=== PATIENT | female | born 2000 | race Caucasian/White ===

== ENCOUNTER 2018-09-26 16:33 | Emergency (ER) | payer OTHER ==
[2018-09-26 17:03] VITALS: BP 124/79
--- NOTE | 2018-09-26 18:40 | UC ---
UC General HPI - HPI Summary HPI Summary: pt c/o sore throat and cough since yesterday. exposed to strep throat. - History of Current Complaint Chief Complaint: UCGeneralIllness Stated Complaint: SORE THROAT Time Seen by Provider: 09/26/18 18:36 Hx Obtained From: Patient Hx Last Menstrual Period: 08/27/18 Onset/Duration: Gradual Onset Timing: Constant Pain Intensity: 3 Associated Signs & Symptoms: Negative: Fever, SOB - Allergy/Home Medications Allergies/Adverse Reactions: Allergies Allergy/AdvReac Type Severity Reaction Status Date / Time amoxicillin Allergy Hives Verified 09/26/18 17:01 Penicillins Allergy Hives Verified 09/26/18 17:01 Home Medications: Home Medications Norgestimate-Ethinyl Estradiol [Sprintec 28 0.25-35 mg-Mcg] 1 tab PO DAILY 09/26 [History Confirmed 09/26/18] PMH/Surg Hx/FS Hx/Imm Hx Previously Healthy: Yes - Surgical History Surgical History: None - Family History Known Family History: Positive: Non-Contributory - Social History Occupation: Student Lives: Dormitory/Roommates Alcohol Use: Occasionally Substance Use Type: None Smoking Status (MU): Never Smoked Tobacco - Immunization History Vaccination Up to Date: Yes Review of Systems All Other Systems Reviewed And Are Negative: Yes Constitutional: Positive: Negative Skin: Positive: Negative Eyes: Positive: Negative ENT: Positive: Sore Throat Respiratory: Positive: Cough Cardiovascular: Positive: Negative Gastrointestinal: Positive: Negative Genitourinary: Positive: Negative Motor: Positive: Negative Neurovascular: Positive: Negative Musculoskeletal: Positive: Negative Neurological: Positive: Negative Psychological: Positive: Negative Physical Exam Triage Information Reviewed: Yes Appearance: Well-Appearing Vital Signs: Initial Vital Signs Temp 98.3 F 09/26/18 17:00 Pulse 88 09/26/18 17:00 Resp 16 09/26/18 17:00 BP 124/79 09/26/18 17:00 Pulse Ox 99 09/26/18 17:00 Vital Signs Reviewed: Yes Eyes: Positive: Conjunctiva Clear ENT: Positive: Pharyngeal erythema, TMs normal, Uvula midline. Negative: Nasal congestion, Nasal drainage, Trismus, Muffled voice, Hoarse voice Neck: Positive: Supple, Nontender, Enlarged Nodes @ - peritonsilar Respiratory: Positive: Lungs clear, Normal breath sounds Cardiovascular: Positive: RRR, No Murmur Abdomen Description: Positive: Nontender, No Organomegaly, Soft Bowel Sounds: Positive: Present Musculoskeletal: Positive: ROM Intact Neurological: Positive: Alert Psychological: Positive: Age Appropriate Behavior Skin Exam: Normal Diagnostics - Laboratory Diagnostic Studies Completed/Ordered: rapid strep + Course/Dx - Diagnoses Provider Diagnosis: Strep pharyngitis Discharge - Sign-Out/Discharge Documenting (check all that apply): Patient Departure All imaging exams completed and their final reports reviewed: No Studies - Discharge Plan Condition: Stable Disposition: HOME Prescriptions: Azithromycin 500 mg PO DAILY 5 Days #5 tablet Patient Education Materials: Strep Throat (DC) Referrals: VERONIKA LO [, APPLICATION, OTHER] - 7 Days - Billing Disposition and Condition Condition: STABLE Disposition: Home
== END 2018-09-26 18:45 | disposition home or self-care (01) ==
LOC: UCCORT 16:33
DX: J02.0 Streptococcal pharyngitis (principal); Z88.0 Allergy status to penicillin
CPT/HCPCS: 87651; 99202; G0463

== ENCOUNTER 2018-10-01 16:55 | Emergency (ER) | payer OTHER ==
[2018-10-01 17:55] VITALS: BP 123/86
--- NOTE | 2018-10-01 18:40 | ED ---
Laceration/Wound HPI - HPI Summary HPI Summary: 18 yr old female with the complaint of laceration distal phalynx left index finger. The patient was in the training room at the gym and she slipped with a pair of slippers when cutting something and ended up stabbing her finger. The patient was attended to by people at school. She states she washed her finger for 5 seconds under running water, and then her friend applied betadine and cleaned the wound with gauze and betadine. They then put on some benzoin type compound and applied steri strips. She comes here for further evaluation. They have already closed this wound. She denies numbness to finger. - History of Current Complaint Stated Complaint: LEFT INDEX FINGER LACERATION Time Seen by Provider: 10/01/18 17:43 Hx Last Menstrual Period: 09/27/18 Pain Intensity: 2 - Allergy/Home Medications Allergies/Adverse Reactions: Allergies Allergy/AdvReac Type Severity Reaction Status Date / Time amoxicillin Allergy Hives Verified 09/26/18 17:01 Penicillins Allergy Hives Verified 09/26/18 17:01 PMH/Surg Hx/FS Hx/Imm Hx Infectious Disease History: No Infectious Disease History: Denies: Traveled Outside the [place] in Last 30 Days - Family History Known Family History: Positive: Non-Contributory - Social History Occupation: Student Lives: Dormitory/Roommates Alcohol Use: Weekly Substance Use Type: Reports: None Smoking Status (MU): Never Smoked Tobacco Review of Systems Constitutional: Negative Positive: Other - laceration finger tip All Other Systems Reviewed And Are Negative: Yes Physical Exam Triage Information Reviewed: Yes Vital Signs On Initial Exam: Initial Vitals Temp Pulse Resp BP Pulse Ox 98.3 F 78 16 123/86 100 10/01/18 17:53 10/01/18 17:53 10/01/18 17:53 10/01/18 17:53 10/01/18 17:53 Vital Signs Reviewed: Yes Appearance: Positive: Well-Appearing, No Pain Distress Skin: Positive: Other - 1.5 cm laceration volar surface left index finger, distal phalynx without any joint or nail involvement. Head/Face: Positive: Normal Head/Face Inspection Eyes: Positive: EOMI ENT: Positive: Normal ENT inspection Neck: Positive: Nontender Respiratory/Lung Sounds: Positive: Clear to Auscultation, Breath Sounds Present Cardiovascular: Positive: Pulses are Symmetrical in both Upper and Lower Extremities Abdomen Description: Negative: Distended Musculoskeletal: Positive: Strength/ROM Intact, Other - intact 2 point discrimination left index finger. Neurological: Positive: Sensory/Motor Intact, Alert, Oriented to Person Place, Time, CN Intact II-III, Normal Gait, Speech Normal Psychiatric: Positive: Normal Procedures - Splinting Left 2nd Digit Location: left index finger Pre-Made Type: metal - 3 1/4 inch foam metal volar splint applied to 2nd digit and crescencio taped to 3rd finger. Splint: volar Pre-Proc Neuro Vasc Exam: normal Post-Proc Neuro Vasc Exam: normal - Laceration/Wound Repair 1 Location: upper extremity Description: Linear Length, Depth and Shape: 1.5 linear, superficial Betadine Prep?: Yes Irrigated w/ Saline (ccs): 300 Laceration/Wound Explored: clean, no foreign body removed Closure: SteriStrips Sterile Dressing Applied?: Yes - with a 3 1/4 inch volar splint applied. Diagnostics - Vital Signs Vital Signs Temp Pulse Resp BP Pulse Ox 10/01/18 17:53 98.3 F 78 16 123/86 100 - Laboratory Lab Statement: Any lab studies that have been ordered have been reviewed, and results considered in the medical decision making process. Laceration Repair Course/Dx - Course Course Of Treatment: 18 yr old female with 1.5 lac repair with steri strips. FU with [facility]. - Clinical Impression Provider Diagnoses: Laceration of left index finger Discharge - Sign-Out/Discharge Documenting (check all that apply): Patient Departure All imaging exams completed and their final reports reviewed: No Studies - Discharge Plan Condition: Good Disposition: HOME Patient Education Materials: Laceration (ED), Steristrips (ED) Referrals: No Primary Care Phys,[facility] [Primary Care Provider] - [facility] [Outside] [facility] [Outside] Additional Instructions: Wear your splint for the next week. Keep the dressing on for the next 48 hours and then change the dressing. Be sure you keep the finger with the steri strips dry. When the strips fall off continue to apply a clean dressing every day, and be sure to wear the splint for at least 7 days as this will protect your finger. After a week you can use a bandaide for your finger for at least another week to keep it clean and protected. - Billing Disposition and Condition Condition: GOOD Disposition: Home
== END 2018-10-01 18:50 | disposition home or self-care (01) ==
LOC: UCCORT 16:55
DX: S61.211A Laceration without foreign body of left index finger without damage to nail, initial encounter (principal); W18.40XA Slipping, tripping and stumbling without falling, unspecified, initial encounter; Y93.89 Activity, other specified; Y92.9 Unspecified place or not applicable; Z88.0 Allergy status to penicillin
CPT/HCPCS: 99211; G0463